=== PATIENT | female | born 1935 | race Caucasian/White ===

== ENCOUNTER 2022-08-27 21:45 | Inpatient (IN) ==
[2022-08-27] MEDS ORDERED: IOPAMIDOL 100 ML BOTTLE IV ONE (21:46)
--- NOTE | 2022-08-27 22:09 | Emergency Department Note ---
HPI General Chief complaint: Stroke Symptoms Stated complaint: "Does not feel right" Time Seen by Provider: 08/27/22 22:09 Source: patient Mode of arrival: ambulatory Limitations: no limitations History of Present Illness HPI Narrative: Narrative: Patient is an 87-year-old female with a past medical history significant for hypertension, CKD 3, TIA, hyperparathyroidism, hypercalcemia, anemia, and hyperlipidemia who presents to the emergency department due to concern for stroke. Approximately 45 minutes prior to arrival patient had a manipulation performed by her son who is a chiropractor due to concern for a rib being out. Soon after this patient began to be confused and did not feel right. Patient did quickly start to feel better, but the family was concerned for the possibility of stroke, so decided to bring her to the emergency department. Patient states that she has facial droop does not have a history of this. She also endorses concern for her speech and change in sensation to her left face. She denies any other concerns at this time. Patient son states that she has a history of high blood pressure, but was recently taken off of blood pressure medications due to blood pressures that wer e too low. Related Data Home Medications Medication Instructions Recorded Confirmed magnesium oxide 400 mg PO QPM 10/24/17 08/28/22 epoetin [id number] 40,000 unit/mL 40,000 unit subcut .[id number] 08/06/20 07/08/22 injection solution (Retacrit) famotidine 20 mg tablet (Acid 20 mg PO QPM 04/15/21 08/28/22 Director Marketing (famotidine)) vitamin B complex (B 1 tab PO QDAY 04/15/21 08/28/22 Complex-Vitamin B12 tablet) polysaccharide iron complex 150 mg 2 cap PO QDAY 08/28/22 08/28/22 iron capsule (Ferric x-150) Previous Rx's Medication Instructions Recorded vit C,E,zinc,copper-wypxz2d 250 1 cap PO QAM #30 caps 09/20/18 mg-lutein 5 mg-zeaxanthin 1 mg capsule (Ocuvite Adult 50 Plus) levothyroxine 50 mcg tablet 50 mcg PO QDAY #90 tabs 08/06/22 Allergies Allergy/AdvReac Type Severity Reaction Status Date / Time atorvastatin [From Lipitor] Allergy Intermediate Cramping Verified 08/28/22 02:11 of the Muscles Amoxicillin [From Augmentin] Allergy Mild Vomiting Verified 08/28/22 02:11 clavulanic acid Allergy Mild Vomiting Verified 08/28/22 02:11 [From Augmentin] Sulfa (Sulfonamide AdvReac Intermediate asthma Verified 08/28/22 02:11 Antibiotics) exacerbation Review of Systems ROS ROS Narrative: Narrative: Constitutional: Denies fever or weakness Eyes: Denies eye pain or vision change ENT ED: Denies throat pain, hearing loss or rhinorrhea Cardiovascular: Denies chest pain or edema Respiratory: Denies shortness of breath or cough Gastrointestinal: Denies abdominal pain, nausea, vomiting, diarrhea, constipation, hematochezia or melena Musculoskeletal: Denies back pain or myalgia Integumentary: Denies rash or lesions Neurological: Reports numbness (Left face), confusion and other (Left-sided facial droop); Denies headache, weakness, abnormal gait or dizziness Endocrine: Denies fatigue or polyuria Hematological/Lymphatic: Denies easy bleeding or easy bruising PFSH Narrative Patient History Narrative: Narrative: Medical/Surgical/Family History All Active Problems (Updated 08/28/22 @ 04:31 by Marcos Morton MD) Facial droop (Acute) Facial numbness (Acute) Elevated blood pressure reading (Acute) Acute bronchitis (Acute) Medicare annual wellness visit, initial (Acute) Immunization deficiency (Acute) Chronic kidney disease, stage 3b (Chronic) Fatigue (Acute) Left knee pain (Acute) Encounter for immunization (Acute) H/O onychomycosis (Acute) Subclavian artery disease (Acute) Medicare annual wellness visit, initial (Acute) TIA (transient ischemic attack) (Acute) Hyperparathyroidism (Chronic) Anemia in stage 3 chronic kidney disease (Chronic) Left arm pain (Acute) Wellness examination (Chronic) Urinary urgency (Acute) Shortness of breath on exertion (Chronic) Cough (Acute) Hand numbness (Chronic) Encounter for Health Maintenance Examination in Adult (Chronic) Transient cerebral ischemia (Chronic) Hypercalcemia (Chronic) Hx of vaginal surgery (Acute) Hx of reduction mammoplasty (Acute) Hx of hysterectomy (Acute) Hx of eye surgery (Acute) History of esophageal dilatation (Acute) Hx of esophagogastroduodenoscopy (Acute) Hx of colonoscopy (Acute) Hx of cataract surgery (Acute) Hx of endoscopy (Acute) Hx of breast surgery (Acute) History of bladder suspension procedure (Acute) Zheng ring (Chronic) Pruritus (Chronic) Pelvic prolapse (Chronic) Hypothyroidism (Chronic) Hypertension (Chronic) Hyperlipidemia (Chronic) Hiatal hernia (Chronic) Esophagitis (Chronic) Enlarged heart (Chronic) Dermatitis (Chronic) Degenerative joint disease (Chronic) Colon polyps (Chronic) [place] ulcer (Chronic) Breast cancer (Chronic) Arthritis (Chronic) Anemia, iron deficiency (Chronic) Acid reflux (Chronic) Medical History Acid reflux Stable. Continue Zantac. she is asymptomatic at this time Anemia, iron deficiency Arthritis Breast cancer 1998-Bilateral Breast CA--op 1998 [place] ulcer Colon polyps 04/20/2006 Colonoscopy-_Dr. Escobar--Hyperplastic polyps Degenerative joint disease Dermatitis Encounter for immunization Enlarged heart Esophagitis esophagitis with dilation Fatigue H/O onychomycosis Hiatal hernia History of esophageal dilatation Hypercalcemia Hyperlipidemia Hypertension Hypothyroidism Immunization deficiency Left knee pain Medicare annual wellness visit, initial Medicare annual wellness visit, initial Pelvic prolapse hysterectomy 1999 Pruritus Derm--Tacos Long discussed trying lower strength steroid vs other agents for itching.patient is resistant to this due to the quick efficacy of Clobetasol and nursing home benefit. advised to try heavy lotion. use Clobetasol sparingly. If symptoms ongoing, will use topical benadryl instead. identify trigger Schatzki's ring 06/11/14 Dr. Burciaga Subclavian artery disease Transient cerebral ischemia 01/2016---recurrent 02/2017 Wellness examination 04/28/18 Surgical History History of bladder suspension procedure 1999 Hx of breast surgery 1998-Patient had bilateral breast surgery but did not state what kind Hx of cataract surgery 2000- Bilateral Hx of colonoscopy 04/03/14 uncomplicated internal hemorrhoids Hx of endoscopy 09/11/14 & 10/26/14 Hx of esophagogastroduodenoscopy Hx of eye surgery 2000-bilateral glaucoma surgery Hx of hysterectomy 1999 Hx of reduction mammoplasty 1998 Hx of vaginal surgery 2000 Vaginal wall suspension Family History sister Pernicious anemia mother Hypertension Acute myocardial infarction Social History Smoking Status: Never smoker Alcohol Intake Frequency: does not drink Substance Use: does not use Exam Narrative Narrative: Narrative: General Limitations: no limitations General appearance: Present alert and in no apparent distress; Absent anxious, appears intoxicated or sleepy Head Head: Present atraumatic and normocephalic Eye Eye: Present PERRL, EOMI and visual ribeiro intact; Absent scleral icterus or nystagmus ENT ENT: Present mucous membranes moist; Absent nasal congestion Neck Neck: Present full ROM; Absent tenderness Chest Chest: Present normal inspection and symmetric chest wall rise; Absent tenderness Respiratory Respiratory: Present normal lung sounds bilaterally; Absent respiratory distress or accessory muscle use Cardiovascular Cardiovascular: Present regular rate, normal rhythm and normal heart sounds Adbominal Abdominal: Present soft and normal bowel sounds; Absent distention or tenderness Extremities Extremities: Present normal inspection and full ROM; Absent pedal edema or pretibial edema Back Back: Present normal inspection and full ROM Neurological Neurological: Present alert, oriented X3, normal gait, motor sensory deficit (Decreased sensation to left face) and reflexes normal; Absent CN II-XII intact (Left-sided facial droop) Psychiatric Psychiatric: Present normal affect and normal mood Skin Skin: Present warm (WNL), dry and normal color Course Vital Signs Vital signs: Vital Signs Temperature 98.1 F 08/27/22 21:47 Pulse Rate 91 H 08/27/22 21:47 Respiratory Rate 16 08/27/22 21:47 Blood Pressure 131/113 08/27/22 21:47 Pulse Oximetry (%) 96 08/27/22 21:47 Oxygen Delivery Method 08/27/22 21:47 Temperature 98.2 F 08/28/22 02:46 Pulse Rate 74 08/28/22 04:16 Respiratory Rate 16 08/28/22 04:16 Blood Pressure 164/48 08/28/22 04:16 Pulse Oximetry (%) 96 08/28/22 04:16 Oxygen Delivery Method 08/28/22 02:46 MDM MDM Narrative Medical decision making narrative: Narrative: Patient is an 87-year-old female who presents to the emergency department due to concern for stroke. A code stroke was called due to patient's symptoms. Patient does have NIH stroke scale of 2 for sensation change to the face and facial droop. I spoke with the teleneurologist who states that patient is unlikely to qualify for TNKase due to low NIH. Patient was not found to have an LVO. Given patient's very elevated blood pressure there is concern for hypertensive emergency. The teleneurologist recommended blood pressure control to a systolic of less than 180 with slow decrease in blood pressure after. We have begun Cardene. Teleneurology also recommended completion of stroke work-up. I have spoken to Dr. Hickman who has agreed to admission for this patient. We have placed admission orders. Lab Data Result diagrams: 08/27/22 22:08 Labs: Lab Results 08/27/22 08/27/22 08/27/22 Range/Units 22:08 22:08 22:08 WBC 8.7 (4.5-11.0) K/mcL RBC 3.65 (3.59-5.38) M/mcL Hgb 10.5 L (11.2-15.7) g/dL Hct 32.1 L (34.1-44.9) % POC Hct (36-48) MCV 87.9 (80.0-100.0) fL MCH 28.8 (26.0-34.0) pg MCHC 32.7 (31.0-36.0) g/dL RDW 14.1 (11.5-14.5) % Plt Count 225 (140-440) K/mcL MPV 9.9 (8.8-12.5) fL Immature Gran % (Auto) 0.3 (0.0-0.5) % Neut % (Auto) 55.2 (38.0-78.0) % Lymph % (Auto) 19.8 (15.5-49.0) % Liberty % (Auto) 12.9 H (1.0-12.0) % Eos % (Auto) 10.9 H (0.0-7.0) % Baso % (Auto) 0.9 (0.0-2.0) % Lymph # (Auto) 1.73 (1.50-4.80) K/mcL Liberty # (Auto) 1.13 H (0.10-0.90) K/mcL Eos # (Auto) 0.95 H (0.00-0.70) K/mcL Baso # (Auto) 0.08 (0.00-0.30) K/mcL Immature Gran # 0.03 (0.00-0.05) K/mcl Absolute Neutrophils 4.81 (1.80-8.00) K/mcL APTT 29.9 (20.0-37.0) sec POC Sodium (133-145) POC Potassium (3.3-5.1) POC Chloride (96-108) POC Total CO2 (22-30) POC BUN (6-20) POC Creatinine (0.6-1.2) POC Glucose (70-105) POC WB Ioniz Calcium (1.16-1.32) Total Bilirubin 0.2 (0.1-1.0) mg/dL Direct Bilirubin < 0.2 (0-0.3) mg/dL AST 14 (<32) U/L ALT 9 (<40) U/L Alkaline Phosphatase 126 H (39-117) U/L Total Protein 7.2 (5.9-8.4) gm/dL Albumin 3.8 (3.2-5.2) gm/dL Globulin 3.4 (2.2-3.7) gm/dL Urine Color Urine Appearance (Clear) Urine pH (5.0-9.0) Ur Specific Isabella (1.000-1.035) Urine Protein (Negative) mg/dL Urine Glucose (UA) (Negative) mg/dL Urine Ketones (Negative) mg/dL Urine Occult Blood (Negative) mg/dL Urine Nitrate (Negative) Urine Bilirubin (Negative) mg/dL Urine Urobilinogen mg/dL Ur Leukocyte Esterase (Negative) /uL Ur Culture Indicated? POC Troponin I (0.00-0.08) 08/27/22 08/27/22 08/28/22 Range/Units 22:16 22:18 00:35 WBC (4.5-11.0) K/mcL RBC (3.59-5.38) M/mcL Hgb (11.2-15.7) g/dL Hct (34.1-44.9) % POC Hct 32.0 L (36-48) MCV (80.0-100.0) fL MCH (26.0-34.0) pg MCHC (31.0-36.0) g/dL RDW (11.5-14.5) % Plt Count (140-440) K/mcL MPV (8.8-12.5) fL Immature Gran % (Auto) (0.0-0.5) % Neut % (Auto) (38.0-78.0) % Lymph % (Auto) (15.5-49.0) % Liberty % (Auto) (1.0-12.0) % Eos % (Auto) (0.0-7.0) % Baso % (Auto) (0.0-2.0) % Lymph # (Auto) (1.50-4.80) K/mcL Liberty # (Auto) (0.10-0.90) K/mcL Eos # (Auto) (0.00-0.70) K/mcL Baso # (Auto) (0.00-0.30) K/mcL Immature Gran # (0.00-0.05) K/mcl Absolute Neutrophils (1.80-8.00) K/mcL APTT (20.0-37.0) sec POC Sodium 133 (133-145) POC Potassium 4.3 (3.3-5.1) POC Chloride 103 (96-108) POC Total CO2 24.0 (22-30) POC BUN 31 H (6-20) POC Creatinine 1.5 H (0.6-1.2) POC Glucose 90 (70-105) POC WB Ioniz Calcium 1.38 H (1.16-1.32) Total Bilirubin (0.1-1.0) mg/dL Direct Bilirubin (0-0.3) mg/dL AST (<32) U/L ALT (<40) U/L Alkaline Phosphatase (39-117) U/L Total Protein (5.9-8.4) gm/dL Albumin (3.2-5.2) gm/dL Globulin (2.2-3.7) gm/dL Urine Color Colorless Urine Appearance Clear (Clear) Urine pH 7.0 (5.0-9.0) Ur Specific Isabella 1.004 (1.000-1.035) Urine Protein Negative (Negative) mg/dL Urine Glucose (UA) Negative (Negative) mg/dL Urine Ketones Negative (Negative) mg/dL Urine Occult Blood Negative (Negative) mg/dL Urine Nitrate Negative (Negative) Urine Bilirubin Negative (Negative) mg/dL Urine Urobilinogen Negative mg/dL Ur Leukocyte Esterase Negative (Negative) /uL Ur Culture Indicated? No POC Troponin I < 0.02 (0.00-0.08) Discharge Plan Patient/Caregiver Discharge Instructions Pt seen by POST PRODUCTION ASSISTANT/PA only: No Clinical Impression: Facial droop, Facial numbness, Elevated blood pressure reading Patient Disposition: Xfer As Outpt/Obs ([facility]) Discharge Date/Time: 08/28/22 02:30
[2022-08-27] MEDS ORDERED: 0.9 % SODIUM CHLORIDE 500 ML IV SCH (22:15)
[2022-08-27 22:27] LABS: POC Calcium, Ionized 1.38 (1.16-1.32); POC Creatinine 1.5 (0.6-1.2); POC Potassium 4.3 (3.3-5.1)
--- NOTE | 2022-08-27 22:29 | Cat Scan Report ---
INDICATION: Neuro Deficit/acute stroke COMPARISON: Previous brain CT scan dated 03/24/2020 TECHNIQUE: Axial noncontrast-enhanced images through the brain. Sagittally and coronally reformatted images. FINDINGS: Cerebral hemispheres:No acute intra-axial hemorrhage. There is a focal area of low attenuation in the posterior left parietal lobe and occipital lobe extending to the temporoparietal junction. This is unchanged since 03/24/2020. No new intra-axial attenuation abnormality or localized mass effect. There is mild periventricular low attenuation consistent with small vessel ischemic change Brain volume is within normal limits for age Brainstem and cerebellum:There is a 5 x 8 mm nonacute lacunar infarction in the philippe. Brainstem and cerebellum are otherwise negative. Extra-axial:No acute hemorrhage. No subdural or epidural hematoma. No subarachnoid hemorrhage. Basilar cisterns are normal Calvarial:No calvarial fracture. No lytic lesion Temporal bones are negative. No destructive lesions Soft tissue, orbits, sinuses:Orbits and visualized facial soft tissues and paranasal sinuses are negative IMPRESSION: 1. Left posterior parietal and occipital encephalomalacia 2. Nonacute pontine lacunar infarction 3. No acute intracranial hemorrhage. No acute attenuation abnormality or localized mass effect The exam was performed using radiation dose optimization techniques including, but not limited to, automated exposure control, adjustment of the mA and/or kV according to patient size and use of iterative reconstruction technique. Interpreted and Authenticated by: Ricardo Crawford 08/27/22
[2022-08-27 22:52] LABS: Basophils # (Auto) 0.08 K/mcL (0.00-0.30); Basophils % (Auto) 0.9 % (0.0-2.0); Eosinophils # (Auto) 0.95 K/mcL (0.00-0.70); Eosinophils % (Auto) 10.9 % (0.0-7.0); Hematocrit 32.1 % (34.1-44.9); Hemoglobin 10.5 g/dL (11.2-15.7); Lymphocytes # (Auto) 1.73 K/mcL (1.50-4.80); Lymphocytes % (Auto) 19.8 % (15.5-49.0); Mean Cell Volume 87.9 fL (80.0-100.0); Mean Corpuscular HGB Conc 32.7 g/dL (31.0-36.0); Mean Platelet Volume 9.9 fL (8.8-12.5); Monocytes # (Auto) 1.13 K/mcL (0.10-0.90); Monocytes % (Auto) 12.9 % (1.0-12.0); Neutrophils % (Auto) 55.2 % (38.0-78.0); Platelet Count 225 K/mcL (140-440); RBC 3.65 M/mcL (3.59-5.38); Red Cell Distribution Width 14.1 % (11.5-14.5); WBC 8.7 K/mcL (4.5-11.0)
[2022-08-27 23:06] LABS: ALT/SGPT 9 U/L (<40); AST/SGOT 14 U/L (<32); Albumin 3.8 gm/dL (3.2-5.2); Alkaline Phosphatase 126 U/L (39-117); Bilirubin,Direct < 0.2 mg/dL (0-0.3); Bilirubin,Total 0.2 mg/dL (0.1-1.0); Globulin 3.4 gm/dL (2.2-3.7)
[2022-08-28] MEDS ORDERED: niCARdipine 25 MG in 0.9 % SODIUM CHLORIDE 240 ML IV ONE (00:44)
[2022-08-28] MEDS ORDERED: ONDANSETRON 4 MG/2 ML VIAL IV PRN ×2 (00:58→09:22)
[2022-08-28] MEDS ORDERED: ACETAMINOPHEN 325 MG TABLET PO PRN ×2 (00:58→09:22)
[2022-08-28 01:03] LABS: Appearance,Urine CLEAR (Clear); Bilirubin,Urine Negative (Negative); Color,Urine COLORLESS; Culture Indicated,Urine No; Glucose,Urine (UA) Negative (Negative); Ketones,Urine Negative (Negative); Leukocyte Esterase,Urine Negative /uL (Negative); Nitrate,Urine Negative (Negative); Protein,Urine Negative (Negative); Specific Gravity,Urine 1.004 (1.000-1.035); Urine Blood Negative (Negative); Urobilinogen,Urine Negative
[2022-08-28] MEDS ORDERED: LABETALOL 5 MG/ML ML IV PRN ×2 (02:00→20:58)
--- NOTE | 2022-08-28 05:51 | Cat Scan Report ---
CLINICAL INFORMATION: CVA COMPARISON: None. TECHNIQUE: 80 cc of Isovue-370 were injected intravenously , and using SmartPrep to maximize cerebral arterial opacification, 0.625 mm helical slices were obtained from the skull base through the cerebral vertex. Following reconstruction , sagittal, coronal and axial reformatted images were processed and reviewed at multiple windows and levels. 3D volume rendered and MIP images were acquired at a independent workstation. The exam was performed using radiation dose optimization techniques including, but not limited to, automated exposure control, adjustment of the mA and/or kV according to patient size and use of iterative reconstruction technique. FINDINGS: The intracranial internal carotid, vertebral, basilar, anterior, middle and posterior cerebral arteries and their branches are well-opacified and normal in contour and caliber without significant stenosis, occlusion or other pathology. Superficial/deep cerebral veins and deep venous sinuses are widely patent. Axial images show severe left TMJ degeneration. There is also moderate left and mild right maxillary sinus mucosal thickening. IMPRESSION: Intracerebral arterial vasculature is patent. No evidence of stenosis, embolus or significant stenosis Severe left TMJ degeneration Moderate left and mild right maxillary sinusitis Interpreted and Authenticated by: Ricardo Salcido 08/28/22
--- NOTE | 2022-08-28 08:00 | Cat Scan Report ---
CLINICAL INFORMATION: Stroke COMPARISON: None. TECHNIQUE: 80 cc of Isovue-300 were injected intravenously followed by 40 cc of normal saline flush. Using SmartPrep, 0.625 helical slices were obtained from the thoracic aortic arch through the [place] of [place]. Following reconstruction, 2.5 mm sagittal, coronal and axial reformatted images were processed. MIPS , 3-D volume rendering and CPR images were also constructed. The exam was performed using radiation dose optimization techniques including, but not limited to, automated exposure control, adjustment of the mA and/or kV according to patient size and use of iterative reconstruction technique. FINDINGS: The thoracic aortic arch is normal diameter with moderate fibrofatty plaque including a 14 mm frond like plaque extending into the lumen of the proximal descending thoracic aorta. This may be a source of embolus. Aberrant right subclavian artery extending through the retroesophageal region. Is a congenital variant There is an 80% stenosis of the mid left subclavian artery due to fibrofatty plaque. The right subclavian, both common, internal and external carotid and both vertebral arteries are patent. There mild fibrofatty plaque in the carotid bifurcation. No soft tissue abnormalities. IMPRESSION: 1. All carotid and vertebral arteries are widely patent. 2. 80% stenosis mid left subclavian artery. Please correlate with asymmetry in blood pressure and any symptoms of the left upper extremity ischemia. 3. Aberrant right subclavian artery-congenital variant. 4. Moderate fibrofatty plaque in the thoracic aortic arch including a frond-like plaque extending into the lumen. This may represent a source of potential embolus. Interpreted and Authenticated by: Ricardo Salcido 08/28/22
--- NOTE | 2022-08-28 08:16 | Internal Med History&Physical ---
HPI History of Present Illness Patient information: Note initiated : 08/28/22 at 8:15 am Service Date, if different from initiated Date: [] Patient: Karla Katz 87 y/o F admitted on 08/28/22 for "Does not feel right". Chief Complaint: [Dysarthria and facial numbness] Chief complaint: Dysarthria and facial numbness History of present illness: Ms. Katz is a 87 year old F history of essential hypertensions, dyslipidemia, ch ronically disease stage III, hypothyroidism, hyperparathyroidism, presenting with 1 day history of acute onset left facial numbness and dysarthria. There was no prior similar episode. Last night around 9 PM, when patient was finished watching TV and about to go to bed, she had acute onset left sided facial numbness, as well as difficulty speaking. She denies any noted facial droopiness. She stated that her right lips has been drooped for quite some time in the past couple months. Her symptoms of left facial numbness and trouble speaking spontaneously resolved in 15 minutes. She presented to our ED for further evaluations. Her blood pressure was found to be elevated at 233/110mmHg at ED presentation. Rest of the vital signs unremarkable. Labs also unremarkable. CT of the head without contrast did not show any intracranial acute pathologies. CTA head and the neck did not show any hemodynamically significant stenosis. Admission request was called for TIA work-up. Constitutional Constitutional: Absent chills, excessive sweating, fatigue, fever(s) or weakness EENT Eyes: Absent blurry vision, change in vision, loss of vision or other visual disturbances Ears: Absent decreased hearing or tinnitus Nose, mouth and throat: Absent abnormal hearing, dry mouth, headache(s), nasal congestion or sore throat Cardiovascular Cardiovascular: Absent chest pain, chest pain at rest, edema, irregular heart rhythm or palpatations Respiratory Respiratory: Absent cough, dyspnea or wheezing Gastrointestinal Gastrointestinal: Absent abdominal pain, constipation, diarrhea, nausea or vomiting Musculoskeletal Musculoskeletal: Absent back pain, deformity, limited range of motion, muscle cramps, muscle weakness or numbness Integumentary Integumentary: Absent lesions, rash or wounds Neurological Neurological: Present abnormal speech and numbness; Absent focal weakness or headache(s) Psychiatric Psychiatric: Absent anxiety, depression or hallucinations PFSH PFSH All Active Problems (Updated 08/28/22 @ 08:23 by Bandar Hickman MD) Hypertensive emergency (Acute) Facial droop (Acute) Facial numbness (Acute) Elevated blood pressure reading (Acute) Acute bronchitis (Acute) Medicare annual wellness visit, initial (Acute) Immunization deficiency (Acute) Chronic kidney disease, stage 3b (Chronic) Fatigue (Acute) Left knee pain (Acute) Encounter for immunization (Acute) H/O onychomycosis (Acute) Subclavian artery disease (Acute) Medicare annual wellness visit, initial (Acute) TIA (transient ischemic attack) (Acute) Hyperparathyroidism (Chronic) Anemia in stage 3 chronic kidney disease (Chronic) Left arm pain (Acute) Wellness examination (Chronic) Urinary urgency (Acute) Shortness of breath on exertion (Chronic) Cough (Acute) Hand numbness (Chronic) Encounter for Health Maintenance Examination in Adult (Chronic) Transient cerebral ischemia (Chronic) Hypercalcemia (Chronic) Hx of vaginal surgery (Acute) Hx of reduction mammoplasty (Acute) Hx of hysterectomy (Acute) Hx of eye surgery (Acute) History of esophageal dilatation (Acute) Hx of esophagogastroduodenoscopy (Acute) Hx of colonoscopy (Acute) Hx of cataract surgery (Acute) Hx of endoscopy (Acute) Hx of breast surgery (Acute) History of bladder suspension procedure (Acute) Schatzki's ring (Chronic) Pruritus (Chronic) Pelvic prolapse (Chronic) Hypothyroidism (Chronic) Hypertension (Chronic) Hyperlipidemia (Chronic) Hiatal hernia (Chronic) Esophagitis (Chronic) Enlarged heart (Chronic) Dermatitis (Chronic) Degenerative joint disease (Chronic) Colon polyps (Chronic) [place] ulcer (Chronic) Breast cancer (Chronic) Arthritis (Chronic) Anemia, iron deficiency (Chronic) Acid reflux (Chronic) Medical History Acid reflux Stable. Continue Zantac. she is asymptomatic at this time Anemia, iron deficiency Arthritis Breast cancer 1998-Bilateral Breast CA--op 1998 [place] ulcer Colon polyps 04/20/2006 Colonoscopy-_Dr. Escobar--Hyperplastic polyps Degenerative joint disease Dermatitis Encounter for immunization Enlarged heart Esophagitis esophagitis with dilation Fatigue H/O onychomycosis Hiatal hernia History of esophageal dilatation Hypercalcemia Hyperlipidemia Hypertension Hypothyroidism Immunization deficiency Left knee pain Medicare annual wellness visit, initial Medicare annual wellness visit, initial Pelvic prolapse hysterectomy 1999 Pruritus Derm--Tacos Long discussed trying lower strength steroid vs other agents for itching.patient is resistant to this due to the quick efficacy of Clobetasol and usp benefit. advised to try heavy lotion. use Clobetasol sparingly. If symptoms ongoing, will use topical benadryl instead. identify trigger Schatzki's ring 06/11/14 Dr. Burciaga Subclavian artery disease Transient cerebral ischemia 01/2016---recurrent 02/2017 Wellness examination 04/28/18 Surgical History History of bladder suspension procedure 1999 Hx of breast surgery 1998-Patient had bilateral breast surgery but did not state what kind Hx of cataract surgery 2000- Bilateral Hx of colonoscopy 04/03/14 uncomplicated internal hemorrhoids Hx of endoscopy 09/11/14 & 10/26/14 Hx of esophagogastroduodenoscopy Hx of eye surgery 2000-bilateral glaucoma surgery Hx of hysterectomy 1999 Hx of reduction mammoplasty 1998 Hx of vaginal surgery 1999 Vaginal wall suspension Family History sister Pernicious anemia mother Hypertension Acute myocardial infarction Social History household members: spouse housing: house lives independently: Yes marital status: occupational status: retired smoking status: Never smoker alcohol intake frequency: does not drink substance use type: does not use MEDS/ALLERGIES Home Medications and Allergies Home Medications Medication Instructions Recorded Confirmed Type magnesium oxide 400 mg PO QPM 10/24/17 08/28/22 History vit C,E,zinc,copper-hkkoh8b 250 1 cap PO QAM #30 caps 09/20/18 08/28/22 Rx mg-lutein 5 mg-zeaxanthin 1 mg capsule (Ocuvite Adult 50 Plus) epoetin jordan-epbx 40,000 unit/mL 40,000 unit subcut .[id number] 08/06/20 07/08/22 History injection solution (Retacrit) famotidine 20 mg tablet (Acid 20 mg PO QPM 04/15/21 08/28/22 History [employer] (famotidine)) vitamin B complex (B 1 tab PO QDAY 04/15/21 08/28/22 History Complex-Vitamin B12 tablet) levothyroxine 50 mcg tablet 50 mcg PO QDAY #90 tabs 08/06/22 08/28/22 Rx polysaccharide iron complex 150 mg 2 cap PO QDAY 08/28/22 08/28/22 History iron capsule (Ferric x-150) Allergies Allergy/AdvReac Type Severity Reaction Status Date / Time atorvastatin [From Lipitor] Allergy Intermediate Cramping Verified 08/28/22 02:11 of the Muscles Amoxicillin [From Augmentin] Allergy Mild Vomiting Verified 08/28/22 02:11 clavulanic acid Allergy Mild Vomiting Verified 08/28/22 02:11 [From Augmentin] Sulfa (Sulfonamide AdvReac Intermediate asthma Verified 08/28/22 02:11 Antibiotics) exacerbation EXAM Constitutional Vitals: Temp Pulse Resp BP Pulse Ox O2 Del Method 36.7 C 79 16 178/72 96 08/28/22 08:01 08/28/22 08:01 08/28/22 08:01 08/28/22 08:01 08/28/22 08:01 08/28/22 02:46 General appearance: cooperative and no acute distress Head Head exam: Present atraumatic and normocephalic Eye Eye exam: Present EOMI and PERRL ENT ENT exam: Present mucous membranes moist, normal exam and normal external ear exam Additional comments: Right lips droop Neck Neck exam: Present normal inspection; Absent lymphadenopathy, tenderness or thyromegaly Respiratory Respiratory exam: Absent accessory muscle use, respiratory distress or wheezes Cardiovascular Cardiovascular exam: Present normal rate and rhythm and systolic murmur; Absent JVD GI/Abdominal GI/Abdominal exam: Present normal bowel sounds and soft; Absent organomegaly or tenderness Extremities Exam Extremities exam: Present full ROM, normal capillary refill and normal inspection; Absent tenderness Neurological Exam Neurological exam: Present alert, CN II-XII intact and oriented X3; Absent motor sensory deficit Psychiatric Psychiatric exam: Present normal affect and normal mood; Absent anxious or depressed Skin Skin exam: Present dry and intact DATA Data Completed and Pending Labs: Labs from last 24 hours 08/28/22 08/27/22 08/27/22 00:35 22:18 22:16 WBC RBC Hgb Hct POC Hct 32.0 L MCV MCH MCHC RDW Plt Count MPV Immature Gran % (Auto) Neut % (Auto) Lymph % (Auto) [place] % (Auto) Eos % (Auto) Baso % (Auto) Lymph # (Auto) [place] # (Auto) Eos # (Auto) Baso # (Auto) Immature Gran # Absolute Neutrophils APTT POC Sodium 133 POC Potassium 4.3 POC Chloride 103 POC Total CO2 24.0 POC BUN 31 H POC Creatinine 1.5 H POC Glucose 90 POC WB Ioniz Calcium 1.38 H Total Bilirubin Direct Bilirubin AST ALT Alkaline Phosphatase Total Protein Albumin Globulin Urine Color Colorless Urine Appearance Clear Urine pH 7.0 Ur Specific [place] 1.004 Urine Protein Negative Urine Glucose (UA) Negative Urine Ketones Negative Urine Occult Blood Negative Urine Nitrate Negative Urine Bilirubin Negative Urine Urobilinogen Negative Ur Leukocyte Esterase Negative Ur Culture Indicated? No POC Troponin I < 0.02 08/27/22 08/27/22 08/27/22 22:08 22:08 22:08 WBC 8.7 RBC 3.65 Hgb 10.5 L Hct 32.1 L POC Hct MCV 87.9 MCH 28.8 MCHC 32.7 RDW 14.1 Plt Count 225 MPV 9.9 Immature Gran % (Auto) 0.3 Neut % (Auto) 55.2 Lymph % (Auto) 19.8 [place] % (Auto) 12.9 H Eos % (Auto) 10.9 H Baso % (Auto) 0.9 Lymph # (Auto) 1.73 [place] # (Auto) 1.13 H Eos # (Auto) 0.95 H Baso # (Auto) 0.08 Immature Gran # 0.03 Absolute Neutrophils 4.81 APTT 29.9 POC Sodium POC Potassium POC Chloride POC Total CO2 POC BUN POC Creatinine POC Glucose POC WB Ioniz Calcium Total Bilirubin 0.2 Direct Bilirubin < 0.2 AST 14 ALT 9 Alkaline Phosphatase 126 H Total Protein 7.2 Albumin 3.8 Globulin 3.4 Urine Color Urine Appearance Urine pH Ur Specific [place] Urine Protein Urine Glucose (UA) Urine Ketones Urine Occult Blood Urine Nitrate Urine Bilirubin Urine Urobilinogen Ur Leukocyte Esterase Ur Culture Indicated? POC Troponin I A/P Assessment and plan (1) Hypertensive emergency: Status: Acute (2) TIA (transient ischemic attack): Status: Acute (3) Anemia in stage 3 chronic kidney disease: Status: Chronic (4) Hypothyroidism: Status: Chronic Qualifiers: Hypothyroidism type: acquired Qualified Code(s): E03.9 - Hypothyroidism, unspecified (5) Hypertension: Status: Chronic Qualifiers: Hypertension type: essential hypertension Qualified Code(s): I10 - Essential (primary) hypertension (6) Hyperlipidemia: Status: Chronic Qualifiers: Hyperlipidemia type: mixed hyperlipidemia Qualified Code(s): E78.2 - Mixed hyperlipidemia (7) Hyperparathyroidism: Status: Chronic Narrative A/P Narrative: Assessment and Plans: 1. TIA: Observation PCU Teleneurology consult Passed swallowing evaluation, okay to order regular diet Neuro Check Physical therapy Occupational therapy Speech therapy Blood pressure control MRI brain stroke protocol 2D echocardiogram HgA1c Lipid panel Aspirin Simvastatin 2. Hypertensive emergency: Now blood pressure 170s/70smmHg HCTZ Hydralazine 10mg IV q4-6hr PRN SBP>=180 and/or DBP>=110mmHg 3. Hyperlipidemia: Lipid panel Simvastatin 4. Anemia in chronic kidney disease III: Avoid nephrotoxic agents Saline lock with HCTZ Repeat CMP in the morning to trend kidney functions 5. Hypothyroidism: Continue thyroid replacement therapy 6. Hyperparathyroidism: Continue to monitor GI ppx: not currently indicated DVT ppx: Heparin Code status: Full Prognosis: stable Disposition: observation PCU Time Spent With Patient Time: Total time spent is greater than 50% in coordination of care (as documented) at patient's floor/unit and/or counseling patient: QUALITY Stroke Onset of Symptoms Date: 08/27/22 Symptom Onset Unknown: No VTE Deep Vein Thrombosis/Pulmonary Embolism Present on Admission: No
[2022-08-28] MEDS ORDERED: HYDROCHLOROTHIAZIDE 25 MG TABLET PO SCH (09:00)
[2022-08-28] MEDS ORDERED: IPRATROPIUM/ALBUTEROL 3 ML AMPUL.NEB NEB PRN (09:22)
[2022-08-28] MEDS ORDERED: SENNOSIDES 1 TABLET PO PRN (09:22)
[2022-08-28] MEDS ORDERED: LACTULOSE 20 GM/30 ML ORAL.SOL PO PRN (09:22)
--- NOTE | 2022-08-28 09:58 | EKG ---
[facility] Test Date: 2022-08-27 Pat Name: Karla Katz Department: ED Room: Gender: Female Advanced Manager: THIERRY : 1935 Requested By: Marcos Morton Order Number: [id number] Reading MD: Kolby Epps Measurements Intervals [place] Rate: 84 P: 63 WV: 185 QRS: 6 QRSD: 83 T: 33 QT: 359 QTc: 425 Interpretive Statements Sinus rhythm Probable anteroseptal infarct, old Electronically Signed On 08-28-2022 9:58:07 PDT by Kolby Epps /store/M0/[id number]/[id number]
[2022-08-28 10:27] LABS: HDL Cholesterol 44 mg/dL (>40); LDL Cholesterol,Calculated 168 mg/dL (<100); Non-HDL Cholesterol 192 mg/dL (<130); Triglycerides 121 mg/dL (<150)
[2022-08-28 10:28] LABS: Hemoglobin A1C 5.1 % Hgb (4.0-6.0)
[2022-08-28] MEDS: ASPIRIN 81 MG TAB.CHEW CHEWED SCH (10:57)
[2022-08-28] MEDS: IRON POLYSACCHARIDE COMPLEX 150 MG CAPSULE PO SCH (10:57)
[2022-08-28] MEDS: LEVOTHYROXINE 50 MCG TABLET PO SCH (10:57)
[2022-08-28] MEDS: VITAMIN B COMPLEX 1 CAPSULE PO SCH (10:57)
[2022-08-28] MEDS: VIT A,C & E/LUTEIN/MINERALS TABLET PO SCH (10:57)
[2022-08-28] MEDS: HEPARIN 5,000 UNIT/ML VIAL SQ SCH ×2 (10:58→21:09)
[2022-08-28] MEDS: DOCUSATE SODIUM 100 MG CAPSULE PO SCH ×2 (10:58→21:09)
--- NOTE | 2022-08-28 12:42 | Internal Med Progress Note ---
SUBJECTIVE Subjective Patient information: Note initiated : 08/28/22 at 12:39 pm Service Date, if different from initiated Date: [] Patient: Karla Katz a 87 y/o F admitted on 08/28/22 for "Does not feel right". Chief Complaint: [] Interval history: Ms. Katz is a 87 year old F history of essential hypertensions, dyslipidemia, chronically disease stage III, hypothyroidism, hyperparathyroidism, presenting with 1 day history of acute onset left facial numbness and dysarthria. There was no prior similar episode. Last night around 9 PM, when patient was finished watching TV and about to go to bed, she had acute onset left sided facial numbness, as well as difficulty speaking. She denies any noted facial droopiness. She stated that her right lips has been drooped for quite some time in the past couple months. Her symptoms of left facial numbness and trouble speaking spontaneously resolved in 15 minutes. She presented to our ED for further evaluations. Her blood pressure was found to be elevated at 233/110mmHg at ED presentation. Rest of the vital signs unremarkable. Labs also unremarkable. CT of the head without contrast did not show any intracranial acute pathologies. CTA head and the neck did not show any hemodynamically sig nificant stenosis. Admission request was called for TIA work-up. 08/29 MRI brain showed a small acute nonhemorrhagic lacunar infarct in the deep posterior left frontal white matter. There were multiple remote lacunar infarcts noted on the MRI scan. Suspect the patient's lacunar infarcts are se condary to poorly controlled hypertension. Started Norvasc 5 mg daily. Awaiting PT and OT evaluations. Physical exam Head: Atraumatic, normal inspection. Eyes: normal appearance, no scleral icterus. Neck: full ROM Respiratory: no respiratory distress. Cardiovascular: normal rate and rhythm, S1, S2. GI/Abdominal: soft, nontender, no guarding. Extremities: full range of motion, nontender. Neurological: CN II-XII intact, intact motor, intact sensation. Psychiatric: normal mood. Skin: warm, normal color Constitutional Vitals: Vital Signs Temp Pulse Resp BP Pulse Ox O2 Del Method 98.3 F 82 20 171/58 96 08/28/22 12:01 08/28/22 10:08/28/22 12:08/28/22 12:08/28/22 10:01 08/28/22 02:46 Period Temp Pulse Resp BP Sys/Reich Pulse Ox O2 Del Method O2 Flow Rate Last 24 Hr 98.1 F-98.3 F 72-99 09-04 111-244/46-155 90-100 Room Air-Room Air Intake and Output 08/27/22 08/28/22 08/28/22 21:59 05:59 13:59 Intake Total 195 120 Output Total 300 300 Balance -105 -180 Weight 47.627 kg 47.718 kg Intake & Output: Intake & Output 08/27/22 08/28/22 08/28/22 21:59 05:59 13:59 Intake Total 195 120 Output Total 300 300 Balance -105 -180 Weight 47.627 kg 47.718 kg Intake: IV 195 Sodium Chloride 0.9% 500 ml @ 167 Wide Open IV .Q0M [facility]IA Rx#: [id number] Cardene 25 MG In Sodium 28 Chloride 0.9% 240 ml @ 5 MG/HR 50 mls/hr IV ONCE ONE Rx#: [id number] Oral 120 Output: Void Amount 300 300 Other: Meal Breakfast Percent of Meal Consumed 25% Urine Appearance Clear Clear Urine Color Pale Pale Urine Odor Normal Normal OBJ DATA Labs CBC & Chem 7: 08/29/22 05:42 08/29/22 05:42 Labs: Abnormal Lab Results 08/28/22 08/27/22 08/27/22 09:38 22:18 22:08 Hgb Hct POC Hct 32.0 L Bureau % (Auto) Eos % (Auto) Bureau # (Auto) Eos # (Auto) POC BUN 31 H POC Creatinine 1.5 H POC WB Ioniz Calcium 1.38 H Alkaline Phosphatase 126 H Cholesterol 236 H LDL Cholesterol, Calc 168 H Non-HDL Cholesterol 192 H 08/27/22 22:08 Hgb 10.5 L Hct 32.1 L POC Hct Bureau % (Auto) 12.9 H Eos % (Auto) 10.9 H Bureau # (Auto) 1.13 H Eos # (Auto) 0.95 H POC BUN POC Creatinine POC WB Ioniz Calcium Alkaline Phosphatase Cholesterol LDL Cholesterol, Calc Non-HDL Cholesterol Meds: Medications Acetaminophen (Acetaminophen 325 Mg Tablet) 650 mg PO Q6HP PRN; Protocol PRN Reason: Per Pain Protocol/Fever > 101 Acetaminophen (Acetaminophen 325 Mg Tablet) 650 mg PO Q6HP PRN; Protocol PRN Reason: Per Pain Protocol/Fever > 101 Albuterol/Ipratropium (Ipratropium/Albuterol 3 Ml Ampul.Neb) 3 ml NEB Q4HRT PRN PRN Reason: Wheezing Aspirin (Aspirin 81 Mg Tab.Chew) 81 mg CHEWED DAILY [facility] Last Admin: 08/28/22 10:57 Dose: 81 mg Docusate Sodium (Docusate Sodium 100 Mg Capsule) 100 mg PO BID [facility] Last Admin: 08/28/22 10:58 Dose: 100 mg Famotidine (Famotidine 20 Mg Tablet) 20 mg PO QPM [facility] Heparin Sodium (Porcine) (Heparin 5,000 Unit/Ml Vial) 5,000 unit SQ Q12 [facility] Last Admin: 08/28/22 10:58 Dose: 5,000 unit Hydralazine HCl (Hydralazine 20 Mg/Ml Vial) 10 mg IV Q4-6HP PRN PRN Reason: Hypertension Hydrochlorothiazide (Hydrochlorothiazide 25 Mg Tablet) 25 mg PO DAILY [facility] Last Admin: 08/28/22 10:57 Dose: 25 mg Lactulose (Lactulose 20 Gm/30 Ml Oral.Mroe) 10 gm PO DAILYP PRN PRN Reason: Constipation Levothyroxine Sodium (Levothyroxine 50 Mcg Tablet) 50 mcg PO QDAY [facility] Last Admin: 08/28/22 10:57 Dose: 50 mcg Magnesium Oxide (Magnesium Oxide 400 Mg Tablet) 400 mg PO QPM [facility] Multivitamins/Minerals (Vit A,C & E/Lutein/Minerals Tablet) 1 tab PO DAILY [facility] Last Admin: 08/28/22 10:57 Dose: 1 tab Ondansetron HCl (Ondansetron 4 Mg/2 Ml Vial) 4 mg IV Q4HP PRN; Protocol PRN Reason: Nausea And Vomiting Ondansetron HCl (Ondansetron 4 Mg/2 Ml Vial) 4 mg IV Q4HP PRN; Protocol PRN Reason: Nausea And Vomiting Polysaccharide Iron Complex (Iron Polysaccharide Complex 150 Mg Capsule) 300 mg PO QDAY [facility] Last Admin: 08/28/22 10:57 Dose: 300 mg Senna (Sennosides 1 Tablet) 2 tab PO HSP PRN PRN Reason: Constipation Simvastatin (Simvastatin 40 Mg Tablet) 40 mg PO HS [facility] Sodium Chloride (0.9 % Sodium Chloride 10 Ml Syringe) 10 ml IV Q8 [facility] Vitamin B Complex (Vitamin B Complex 1 Capsule) 1 cap PO DAILY [facility] Last Admin: 08/28/22 10:57 Dose: 1 cap A/P Assessment and plan (1) Hypertensive emergency: Status: Acute (2) TIA (transient ischemic attack): Status: Acute (3) Anemia in stage 3 chronic kidney disease: Status: Chronic (4) Hypothyroidism: Status: Chronic Qualifiers: Hypothyroidism type: acquired Qualified Code(s): E03.9 - H ypothyroidism, unspecified (5) Hypertension: Status: Chronic Qualifiers: Hypertension type: essential hypertension Qualified Code(s): I10 - Esse ntial (primary) hypertension (6) Hyperlipidemia: Status: Chronic Qualifiers: Hyperlipidemia type: mixed hyperlipidemia Qualified Code(s): E78.2 - Mixed hyperlipidemia (7) Hyperparathyroidism: Status: Chronic Narrative A/P Narrative: Assessment and Plans: 1. Acute lacunar infarct in posterior left frontal lobe Changed to inpatient status for acute stroke. Passed swallowing evaluation, okay to order regular diet Neuro Check Physical therapy Occupational therapy Speech therapy Blood pressure control MRI brain stroke protocol 2D echocardiogram report pending Aspirin Simvastatin 2. Essential hypertension Start Norvasc 5 mg daily. As needed IV labetalol and hydralazine for extreme blood pressure elevation. Patient has CKD stage III. 3. Hyperlipidemia: Simvastatin 4. Chronic kidney disease III: Avoid nephrotoxic agents 5. Hypothyroidism: Continue thyroid replacement therapy 6. Hyperparathyroidism: Continue to monitor GI ppx: not currently indicated DVT ppx: Heparin Code status: Full Prognosis: stable Disposition: Awaiting PT and OT recommendations. Time Spent With Patient Time: Total time spent is greater than 50% in coordination of care (as documented) at patient's floor/unit and/or counseling patient: QUALITY Stroke Onset of Symptoms Date: 08/27/22 Symptom Onset Unknown: No VTE Deep Vein Thrombosis/Pulmonary Embolism Present on Admission: No
[2022-08-28] MEDS: hydrALAZINE 20 MG/ML VIAL IV PRN ×2 (12:55→17:33)
--- NOTE | 2022-08-28 13:31 | Magnetic Resonance Report ---
CLINICAL INFORMATION: Left-sided facial numbness and dysarthria COMPARISON: None. TECHNIQUE:Sagittal T1 FLAIR, axial T2 FLAIR, T2 propeller, effusion ADC weighted images were acquired. FINDINGS: The ventricles, sulci, fissures and cisterns are symmetrically enlarged compatible with mild age-related atrophy extra-axial fluid collections or mass are appreciated. Scattered chronic ischemic foci in the deep cerebral white matter are expected for age. There is a 10 x 4 mm remote lacunar infarct in the right philippe. There is a small linear acute nonhemorrhagic lacunar infarct in the deep posterior left frontal white matter. The signal void in intracerebral arteries, extra-axial cranial nerves, pituitary, orbits and paranasal sinuses are all normal. IMPRESSION: Small acute nonhemorrhagic lacunar infarct in the deep posterior left frontal white matter. Mild atrophy with scattered chronic ischemic changes in the deep cerebral white matter-expected for age. 10 x 4 mm remote lacunar infarct in the right philippe. 3-4 remote lacunar infarcts in the inferior right cerebellum. Interpreted and Authenticated by: Ricardo Salcido 08/28/22
[2022-08-28] MEDS: 0.9 % SODIUM CHLORIDE 10 ML SYRINGE IV SCH ×2 (13:37→21:09)
[2022-08-28] MEDS ORDERED: hydrALAZINE 20 MG/ML VIAL IV PRN (20:59)
[2022-08-28] MEDS: SIMVASTATIN 40 MG TABLET PO SCH (21:08)
[2022-08-28] MEDS: FAMOTIDINE 20 MG TABLET PO SCH (21:09)
[2022-08-28] MEDS: MAGNESIUM OXIDE 400 MG TABLET PO SCH (21:09)
--- NOTE | 2022-08-28 22:00 | Cat Scan Report ---
CLINICAL INFORMATION: Follow-up left frontal infarct COMPARISON: Brain MRI 08/28/2022. Head CT 03/24/2020 TECHNIQUE: 2.5 mm helical slices were obtained in the skull base to vertex. Following reconstruction, axial reformatted images were reviewed at bone and parenchymal windows. The exam was performed using radiation dose optimization techniques including, but not limited to, automated exposure control, adjustment of the mA and/or kV according to patient size and use of iterative reconstruction technique. FINDINGS: The ventricles, sulci, fissures, and cisterns are symmetrically enlarged compatible with mild age-related atrophy. No extra-axial fluid collections are identified. Mild patchy chronic ischemic changes, in the deep cerebral white matter, are expected for age. A moderate size remote cortical-based infarct inferior left occipital lobe again noted. Pulmonary remote lacunar infarct in the right philippe and fourth five small remote is marked in the inferior cerebellar hemispheres appreciated. The known acute infarct in the posterior left frontal lobe is not manifest on CT. No evidence of hemorrhage. IMPRESSION: Mild atrophy and chronic ischemic changes in the deep cerebral white matter-expected for age. Moderate remote cortical-based infarct inferior left occipital lobe and small remote lacunar infarcts in the right philippe and inferior cerebellum seen-as before. No acute findings Interpreted and Authenticated by: Ricardo Salcido 08/28/22
[2022-08-29] MEDS: 0.9 % SODIUM CHLORIDE 10 ML SYRINGE IV SCH ×3 (05:54→20:48)
[2022-08-29 06:34] LABS: Basophils # (Auto) 0.06 K/mcL (0.00-0.30); Basophils % (Auto) 0.8 % (0.0-2.0); Eosinophils # (Auto) 0.29 K/mcL (0.00-0.70); Eosinophils % (Auto) 3.6 % (0.0-7.0); Hematocrit 28.8 % (34.1-44.9); Hemoglobin 9.2 g/dL (11.2-15.7); Lymphocytes # (Auto) 1.13 K/mcL (1.50-4.80); Lymphocytes % (Auto) 14.2 % (15.5-49.0); Mean Cell Volume 88.3 fL (80.0-100.0); Mean Corpuscular HGB Conc 31.9 g/dL (31.0-36.0); Monocytes # (Auto) 0.86 K/mcL (0.10-0.90); Monocytes % (Auto) 10.8 % (1.0-12.0); Neutrophils % (Auto) 70.2 % (38.0-78.0); Platelet Count 210 K/mcL (140-440); RBC 3.26 M/mcL (3.59-5.38); Red Cell Distribution Width 14.3 % (11.5-14.5)
[2022-08-29 07:03] LABS: ALT/SGPT 6 U/L (<40); AST/SGOT 11 U/L (<32); Albumin 3.2 gm/dL (3.2-5.2); Albumin/Globulin Ratio 1.3 (1.0-2.3); Alkaline Phosphatase 104 U/L (39-117); Bilirubin,Total 0.3 mg/dL (0.1-1.0); Blood Urea Nitrogen 31 mg/dL (8-23); Calcium 10.8 mg/dL (8.6-10.4); Carbon Dioxide 24 mmol/L (22-30); Chloride 100 mmol/L (96-108); Globulin 2.4 gm/dL (2.2-3.7); Glomerular Filtration Rate 33; Glucose 90 mg/dL (70-105)
[2022-08-29] MEDS: HEPARIN 5,000 UNIT/ML VIAL SQ SCH ×2 (08:47→20:48)
[2022-08-29] MEDS: ASPIRIN 81 MG TAB.CHEW CHEWED SCH (08:47)
[2022-08-29] MEDS: IRON POLYSACCHARIDE COMPLEX 150 MG CAPSULE PO SCH (08:48)
[2022-08-29] MEDS: VIT A,C & E/LUTEIN/MINERALS TABLET PO SCH (08:48)
[2022-08-29] MEDS: DOCUSATE SODIUM 100 MG CAPSULE PO SCH ×2 (08:48→20:48)
[2022-08-29] MEDS: LEVOTHYROXINE 50 MCG TABLET PO SCH (08:48)
[2022-08-29] MEDS: VITAMIN B COMPLEX 1 CAPSULE PO SCH (08:48)
[2022-08-29] MEDS: amLODIPine 5 MG TABLET PO SCH (11:59)
[2022-08-29] MEDS: SIMVASTATIN 40 MG TABLET PO SCH (20:48)
[2022-08-29] MEDS: MAGNESIUM OXIDE 400 MG TABLET PO SCH (20:48)
[2022-08-29] MEDS: FAMOTIDINE 20 MG TABLET PO SCH (20:48)
[2022-08-30] MEDS: 0.9 % SODIUM CHLORIDE 10 ML SYRINGE IV SCH (06:00)
[2022-08-30] MEDS: ASPIRIN 81 MG TAB.CHEW CHEWED SCH (08:34)
[2022-08-30] MEDS: HEPARIN 5,000 UNIT/ML VIAL SQ SCH (08:34)
[2022-08-30] MEDS: DOCUSATE SODIUM 100 MG CAPSULE PO SCH (08:34)
[2022-08-30] MEDS: VITAMIN B COMPLEX 1 CAPSULE PO SCH (08:35)
[2022-08-30] MEDS: VIT A,C & E/LUTEIN/MINERALS TABLET PO SCH (08:35)
[2022-08-30] MEDS: IRON POLYSACCHARIDE COMPLEX 150 MG CAPSULE PO SCH (08:35)
[2022-08-30] MEDS: LEVOTHYROXINE 50 MCG TABLET PO SCH (08:35)
--- NOTE | 2022-08-30 10:27 | Discharge Summary ---
Discharge Provider Provider IMPORTANT FOLLOW-UP INFORMATION FOR PCP: Patient information: Note initiated : 08/30/22 at 10:25 am Service Date, if different from initiated Date: [] Patient: Karla Katz 87 y/o F admitted on 08/28/22 for "Does not feel right"/Stroke Symptoms. Chief Complaint: [] Date of admission: 08/28/22 12:47 Discharge date: 08/30/22 Primary care physician: Cheko Martin MD Consults: 08/27/22 22:13 Consult to Physician [CONS] Stat Comment: Consulting Provider: [facility] Reason For Exam: Physician to Consult 08/28/22 Consult to Physician [CONS] Stat Comment: Consulting Provider: Bandar Hickman Reason For Exam: Physician to Consult COURSE Hospital Course Hospital course: Ms. Katz is a 87 year old F history of essential hypertensions, dyslipidemia, chronically disease stage III, hypothyroidism, hyperparathyroidism, presenting with 1 day history of acute onset left facial numbness and dysarthria. There was no prior similar episode. Last night around 9 PM, when patient was finished watching TV and about to go to bed, she had acute onset left sided facial numbness, as well as difficulty speaking. She denies any noted facial dr oopiness. She stated that her right lips has been drooped for quite some time in the past couple months. Her symptoms of left facial numbness and trouble speaking spontaneously resolved in 15 minutes. She presented to our ED for further evaluations. Her blood pressure was found to be elevated at 233/110mmHg at ED presentation. Rest of the vital signs unremarkable. Labs also unremarkable. CT of the head without contrast did not show any intracranial acute pathologies. CTA head and the neck did not show any hemodynamically significant stenosis. Admission request was called for TIA work-up. 08/29 MRI brain showed a small acute nonhemorrhagic lacunar infarct in the deep posterior left frontal white matter. There were multiple remote lacunar infarcts noted on the MRI scan. Suspect the patient's lacunar infarcts are secondary to poorly controlled hypertension. Started Norvasc 5 mg daily. Awaiting PT and OT evaluations. 08/30 The patient is back to her baseline, independent with activities of daily living. No evidence of atrial fibrillation or atrial flutter while wearing the rn cardiac. Suspect the patient's lacunar infarct as well as prior lacunar infarcts are due to episodes of hypertension. Blood pressure was 104/62 yesterday evening so reduced Norvasc to 2.5 mg daily. Discharged to home with family, the patient is not interested in home health PT. New medications at discharge are aspirin, simvastatin as the patient has not tolerated atorvastatin in the past as well as Norvasc. The patient was encouraged to keep a blood pressure diary and take that information when she sees her primary care provider for a post hospital follow-up clinic visit. Echocardiogram report still pending at discharge. Physical exam Head: Atraumatic, normal inspection. Eyes: normal appearance, no scleral icterus. Neck: full ROM Respiratory: no respiratory distress. Cardiovascular: normal rate and rhythm, S1, S2. GI/Abdominal: soft, nontender, no guarding. Extremities: full range of motion, nontender. Neurological: CN II-XII intact, intact motor, intact sensation. Psychiatric: normal mood. Skin: warm, normal color Discharge diagnosis: Acute lacunar stroke Time Spent with Patient Time attestation: Total time spent providing and/or coordinating discharge services: Time spent: Greater than 30 minutes EXAM Constitutional Vitals: Temp Pulse Resp BP Pulse Ox O2 Del Method 97.6 F 78 17 127/69 94 08/30/22 04:01 08/30/22 06:01 08/30/22 06:01 08/30/22 06:01 08/30/22 06:01 08/30/22 06:01 Discharge Data Data Completed and Pending Labs on day of discharge: Labs from last 24 hours 08/30/22 05:34 Hgb 9.6 L Discharge Plan Patient/Caregiver Discharge Instructions Activity: increase activity as tolerated Diet: Regular Diet Prescriptions: New simvastatin 40 mg Tablet 40 mg PO HS Qty: 60 4RF amlodipine 2.5 mg tablet 2.5 mg PO QDAY Qty: 60 4RF aspirin 81 mg tablet,chewable 81 mg PO QDAY Qty: 60 4RF Continued levothyroxine 50 mcg tablet 50 mcg PO QDAY Qty: 90 4RF C,E,zinc,copper [id number] [Ocuvite Adult 50 Plus] 250-5-1 mg capsule 1 cap PO QAM Qty: 30 0RF Retacrit 40,000 unit/mL solution 40,000 unit [id number] vitamin B complex [B Complex-Vitamin B12] Tablet 1 tab PO QDAY famotidine [Acid Insurance Assistant (famotidine)] 20 mg tablet 20 mg PO QPM magnesium oxide 400 mg capsule 400 mg PO QPM polysaccharide iron complex [Ferric x-150] 150 mg iron capsule 1 cap PO BID Follow Up Plan Follow up with: Cheko Martin MD [Primary Care Provider] - 09/06/22 11:30 am (Please check in at 11:15 am) Patient Disposition: Home, Self-Care Overall status at discharge: patient is progressing back to baseline Discharge Orders: Discharge Order (Routine); Ordered 08/30/22 Ordered By: Rich SANCHEZ VTE Deep Vein Thrombosis/Pulmonary Embolism Present on Admission: No
[2022-08-30] MEDS ORDERED: amLODIPine 5 MG TABLET PO ONE (11:59)
[2022-08-30] MEDS: amLODIPine 5 MG TABLET PO SCH (12:07)
== END 2022-08-30 13:20 | disposition home or self-care (01) | DRG 65 ==
LOC: ED 21:45 → ICU 21:45
PROVIDERS: ADMIT Internal Medicine; ATTEND Internal Medicine